=== PATIENT | female | born 1980 | race Caucasian/White ===

== ENCOUNTER 2017-02-04 16:10 | Emergency (ER) | payer MEDICAID ==
[~2017-02-04] VITALS: Ht 160 cm; Wt 89.4 kg
[~2017-02-04 16:10] MED LIST: ALPR0.5T3 PO; AMBI5TAB PO; GABA300C5 PO; LEVO75TA3 PO; PARO40TA2 PO; ROBA750T PO; VITA400C59 CHEW; VITATAB11 PO
[2017-02-04 16:19] VITALS: BP 149/101; PULSE 103; RESP 18; TEMP 99.3; O2SAT 97
--- NOTE | 2017-02-04 16:30 | PD ---
HPI Chief Complaint: Skin Problem Time Seen by Provider: 16:29 Travel History International Travel<30 days: No Contact w/Intl Traveler<30days: No Traveled to known affect area: No History of Present Illness HPI 36 year old female presents to the ED for evaluation of 3 week history of left inner elbow pain. Gradual onset after having her blood drawn three weeks ago. Patient states she is having problems flexing and extending the elbow. She states that she woke up this morning the area was warm and red. She denies chest pain, shortness of breath, fevers, chills, IV drug use, numbness, tingling , weakness, limitations range of motion of the extremity. She does not use oral contraception. She takes several antidepressants daily. PFSH Past Medical History Blood Disorders: No Depression: Yes Diminished Hearing: No Thyroid Disease: Yes ?: Not Social History Alcohol Use: No Tobacco Use: No Substance Use: No Allergies-Medications (Allergen,Severity, Reaction): Coded Allergies: Vancomycin (Verified Allergy, Severe, Rash, 02/04/17) Reported Meds & Prescriptions Reported Meds & Active Scripts Active Ibuprofen 800 Mg Tab 800 Mg PO Q8H Alprazolam 0.5 Mg Tab 0.5 Mg PO TID PRN Paroxetine (Paroxetine HCl) 40 Mg Tab 40 Mg PO DAILY Ambien (Zolpidem Tartrate) 5 Mg Tab 5 Mg PO HS PRN Levothyroxine (Levothyroxine Sodium) 75 Mcg Tab 75 Mcg PO DAILY Reported Gabapentin 100 Mg Cap 100 Mg PO BID Vitamin B Complex (B-Complex Vitamins) 1 Tab 1 Tab PO DAILY Review of Systems Except as stated in HPI: all other systems reviewed are Neg Physical Exam Narrative GENERAL: Well-nourished, well-developed white female SKIN: Focused skin assessment warm/dry. There is an 4-5 cm area of erythema in the medial aspect of the left antecubital space. There is a single puncture wound over the underlying vein. There is a tender, ropy mass consistent with thrombophlebitis. HEAD: Normocephalic. EYES: No scleral icterus. No injection or drainage. NECK: Supple, trachea midline. No JVD or lymphadenopathy. CARDIOVASCULAR: Regular rate and rhythm without murmurs, gallops, or rubs. RESPIRATORY: Breath sounds equal bilaterally. No accessory muscle use. GASTROINTESTINAL: Abdomen soft, non-tender, nondistended. MUSCULOSKELETAL: No cyanosis, or edema. 2+ radial pulse. Patient retains full, active motion of the LUE. BACK: Nontender without obvious deformity. No CVA tenderness. Data Data Last Documented VS Vital Signs Date Time Temp Pulse Resp B/P Pulse Ox O2 Delivery O2 Flow Rate FiO2 02/04/17 16:29 16 02/04/17 16:19 99.3 103 149/101 97 Orders Us Arm Venous Doppler (02/04/17 16:35) Tramadol (Ultram) (02/04/17 17:15) MDM Medical Decision Making Medical Screen Exam Complete: Yes Emergency Medical Condition: Yes Differential Diagnosis Thrombophlebitis versus cellulitis versus foreign body versus other Narrative Course 36 year old female presents to the ED for evaluation of 3 week history of left inner elbow pain. Gradual onset after having her blood drawn three weeks ago. Patient states she is having problems flexing and extending the elbow. She states that she woke up this morning the area was warm and red. She denies chest pain, shortness of breath, fevers, chills, IV drug use, numbness, tingling , weakness, limitations range of motion of the extremity. She does not use oral contraception. Vitals reviewed. Physical exam reveals an 4-5 cm area of erythema in the medial aspect of the left antecubital space. There is a single puncture wound over the underlying vein. There is a tender, ropy mass consistent with thrombophlebitis. 2+ radial pulse. Patient retains full, active motion of the LUE. I question the patient several times regarding IV drug use which she adamantly denies. Ultrasound reveals superficial vein thrombosis of the distal cephalic vein. No evidence of DVT per radiology read. Prescribed a short course of anti-inflammatories and warm compresses multiple times daily. I discussed the possibility of the need for anticoagulation to her primary care provider. Patient is instructed to treat symptomatically as discussed, follow- up with her primary care provider. She indicated understanding of instructions. She is agreeable to the plan. She is stable and discharged home. Diagnosis Primary Impression: Superficial thrombophlebitis Qualified Code: I80.8 - Superficial thrombophlebitis of left upper extremity Referrals: Primary Care Physician Patient Instructions: General Instructions, Superficial Thrombophlebitis (ED) Additional Instructions: Rest, ice, elevate the extremity. Apply ice no longer than 10-15 minutes per hour a few times a day. Warm compresses may also help to reduce pain symptoms. 800 mg ibuprofen 3 times a day as prescribed to reduce pain and inflammation. Return to normal, gentle activity as tolerated. Follow up with your primary care provider this week. Return to the ED for any urgent or emergent medical condition. Med/Other Pt SpecificInfo: Prescription(s) given Scripts Ibuprofen 800 Mg [id number] Mg PO Q8H #21 TAB Ref 0 Prov:Tony Norwood MD 02/04/17 Disposition: 01 DISCHARGE HOME Condition: Stable Silvia Quintero Feb 04, 2017 16:29
[2017-02-04] MEDS ORDERED: GABA100C4 PO (16:46)
[2017-02-04] MEDS: traMADol HCL 50 MG TAB PO ONE ×2 (17:15→17:21)
--- NOTE | 2017-02-04 17:45 | RADHPO ---
EXAM DATE/TIME: 02/04/2017 17:16 [facility] COMPARISON: No previous studies available for comparison. INDICATIONS : Left arm pain. MEDICAL HISTORY : Hypothyroidism. Fibromyalgia. Depression. Anxiety. SURGICAL HISTORY : None. ENCOUNTER: Initial ACUITY: 2 weeks PAIN SCORE: 10/10 LOCATION: Left arm. FINDINGS: Superficial thrombus of the distal cephalic vein is identified. Adjacent 3.1 x 1.4 hypoechogenicity w ithout color Doppler flow in the anterior fossa may represent hematoma. There is spontaneous flow documented in the brachial, basilic, axillary, and subclavian veins. The v essels are compressible and augmentation response is documented. No filling defects are seen. The f low is phasic with respiration. Direction of flow in the jugular vein is caudal. CONCLUSION: Superficial vein thrombosis of the distal cephalic vein. No evidence of deep vein thr ombosis of the left upper extremity. Daryl Holliday MD on February 04, 2017 at 17:42 Board Certified Radiologist. This report was verified electronically.
[2017-02-04] MEDS ORDERED: IBUP800T23 PO (18:05)
[2017-02-16] MEDS ORDERED: AMBI5TAB PO (15:28)
[2017-02-16] MEDS ORDERED: GABA300C5 PO (15:28)
[2017-02-16] MEDS ORDERED: ALPR0.5T3 PO (15:28)
[2017-02-19] MEDS ORDERED: ALPR0.5T3 PO (07:35)
[2017-02-19] MEDS ORDERED: MOBI7.5T PO (11:25)
[2017-02-19] MEDS ORDERED: HYDR-2376 PO (11:25)
[2017-02-19] MEDS ORDERED: AMBI5TAB PO (11:25)
[2017-02-19] MEDS ORDERED: APIX5TAB PO (11:38)
[2017-03-08] MEDS ORDERED: HYDR-2376 PO (11:27)
[2017-03-08] MEDS ORDERED: GABA600T PO (18:17)
[2017-03-22] MEDS ORDERED: AMBI5TAB PO (11:13)
[2017-03-22] MEDS ORDERED: ALPR0.5T3 PO (16:12)
[2017-04-19] MEDS ORDERED: APIX5TAB PO (12:46)
[2017-04-19] MEDS ORDERED: ALPR0.5T3 PO (12:46)
[2017-04-19] MEDS ORDERED: AMBI5TAB PO (12:46)
== END 2017-02-04 18:28 | disposition home or self-care (01) ==
LOC: PHEFT 16:10
DX: I80.8 Phlebitis and thrombophlebitis of other sites (principal)
CPT/HCPCS: 93971